=== PATIENT | female | born 1945 | race Caucasian/White ===

== ENCOUNTER 2023-03-20 08:09 | Outpatient (AMB) | payer MEDICARE, SELFPAY ==
--- NOTE | 2023-03-20 08:17 | MHC.OFFWIV ---
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 Patient states she has been having a sore/itchy throat x6 days. She denies any associated fever/chills. She denies any dysphagia but reports odynophagia. She reports associated fatigue. She denies associated cough or congestion/rhinorrhea. [facility] Social History Patient Tobacco Use Status: Former Tobacco user Review of Systems Const All systems reviewed & are unremarkable except as noted in HPI and below Reports no additional complaints Eyes Reports no additional complaints ENT Reports no additional complaints Card Reports no additional complaints Resp Reports no additional complaints GI Reports no additional complaints Reports no additional complaints Musc Reports no additional complaints Skin/Breast Reports system reviewed and no additional complaints, except as documented Neuro Reports no additional complaints Psych Reports no additional complaints Endo Reports no additional complaints Faustino/Lymph Reports no additional complaints Aller/Immun Reports no additional complaints Physical Exam Const Other: Vital signs reviewed. Constitutional: Non-toxic appearing. No acute distress. Well-developed and well-nourished. HEENT: Normocephalic and atraumatic. There is mild posterior oropharyngeal erythema but no exudates. There is no unilateral tonsillar swelling/hypertrophy. Her uvula is midline. Skin: Warm and dry. No rashes or lesions noted. Neck: Full and painless range of motion. No cervical lymphadenopathy. Cardio: Regular rate. No lower extremity edema. No JVD. Pulmonary: No respiratory distress. No accessory muscle usage. Musculoskeletal: Normal range of motion in joints throughout the body. No deformity or other signs of injury. Neuro: Alert and oriented x4. Cranial nerves 2-12 grossly intact. No focal deficits appreciated. Psych: Normal mood and affect. Assessment & Plan Assessment & Plan (1) Acute viral pharyngitis: Code(s): J02.9 - Acute pharyngitis, unspecified Plan This is a 77-year-old female presenting to the office complaining of a sore throat. Her rapid strep test is negative. History and physical most consistent with acute pharyngitis, likely viral; there is no evidence of peritonsillar mass/abscess, peritonsillar cellulitis, or unilateral neck swelling. The patient has a centor score of 0 points conferring a 1% to 2.5% likelihood of strep so antibiotics are not required at this time. Patient's vital signs are stable, physical exam is otherwise benign, and patient is overall nontoxic appearing. Recommended symptomatic management including rest, increased fluids, advil/tylenol for pain/fever, salt water gargles, and over the counter throat lozenges. Patient advised to follow up here or go to the emergency room for worsening/persistent symptoms such as dysphagia, tonsillar swelling, or difficulty breathing. Patient verbalizes understanding and is in agreement the plan. Coding Level of Care Code New Pt Level 3 (95486) Diagnoses Acute viral pharyngitis J02.9
[2023-03-20 08:28] VITALS: BP 126/64; PULSE 62; TEMP 36.6; O2SAT 97; BMI 24.2
== END 2023-03-20 09:09 | disposition home or self-care (01) ==
PROVIDERS: PCP Internal Medicine; Visit Provider Physician Assistant Medical
DX: J02.9 Acute pharyngitis, unspecified (principal)
CPT/HCPCS: 87880; 99203

== ENCOUNTER 2023-05-27 16:35 | Inpatient (IN) | payer MEDICARE, SELFPAY ==
--- NOTE | ~2023-05-27 | XR_ITS ---
EXAMINATION: XR CHEST CLINICAL INFORMATION: Epigastric pain COMPARISON: None available. TECHNIQUE: Frontal view of the chest was obtained. FINDINGS: The lungs are well-expanded and clear of acute consolidation. There is mild linear reticular stranding seen in the right middle lobe suspicious for atelectasis or scarring. No pleural effusion seen. The heart size is borderline enlarged. Pulmonary vascularity is normal. No gross bony abnormality seen. XR/XR chest 1V IMPRESSION: Mild atelectasis or scarring right middle lobe. Rest of the lungs are clear.
--- NOTE | ~2023-05-27 | CT_ITS ---
EXAMINATION: CT ABDOMEN AND PELVIS WITHOUT CONTRAST CLINICAL INFORMATION: Abdominal pain and diarrhea. COMPARISON: None available. TECHNIQUE: Multidetector volumetric imaging was performed from the superior aspect of the liver through the pubic symphysis. Sagittal and coronal reformatted images were obtained on the technologist's workstation. This CT examination was performed using dose optimization techniques as appropriate, variously including the following: *Automated exposure control *Adjustment of mA and/or kV according to patient size (this includes techniques or standardized protocols for targeted exams where dose is matched to indication/reason for exam; i.e. extremities or head) *Use of iterative reconstruction technique DLP: 400 mGy-cm FINDINGS: LUNG BASES: The visualized lung bases are unremarkable. LIVER, GALLBLADDER, AND BILIARY TREE: The liver is normal in size, shape, and attenuation. No focal hepatic lesion or biliary ductal dilatation is present. The gallbladder is unremarkable with no evidence of radiopaque gallstones, gallbladder wall thickening, or obvious pericholecystic inflammatory changes. PANCREAS: Unremarkable. SPLEEN: Unremarkable. ADRENAL GLANDS: Unremarkable. KIDNEYS AND URETERS: The kidneys are normal in size, shape, and attenuation. No hydronephrosis, hydroureter, or calculi seen. No perinephric stranding. There is a 1.5 cm cyst partially exophytic cyst upper midpole lateral cortex left kidney and a 1.4 cm cyst upper pole and exophytic 2.3 cm cyst mid to lower pole right kidney. There is as well additional cyst along the medial cortex lower pole right kidney. BLADDER: Unremarkable. GASTROINTESTINAL TRACT: There is distended sigmoid colon with fluid. There are annular sutures seen in the mid sigmoid colon from previous intervention/ileocolic anastomosis without stenosis. there are fluid-filled small bowel loops without any significant distention.. These findings could be secondary to inflammatory process but no mural thickening seen. Anal narrowing or stricture is not excluded. Rest of the small bowel loops are normal caliber. Appendix is not visualized. The stomach is nondistended. ABDOMINAL WALL: No significant hernia is appreciated. LYMPH NODES: Normal. VASCULAR: Unremarkable. PELVIC VISCERA: No free air or free fluid seen. No abnormal pelvic lymphadenopathy. OSSEOUS STRUCTURES: Grade 1 retrolisthesis L1 over L2 with degenerative disc changes with vacuum disc phenomena lower dorsal spine, L1-L2 and L2 L5-S1 disc level. There is right presacral placement of electrode. The hardware overlies over the right buttock. CT/CT abdomen pelvis wo IV con IMPRESSION: Annular sutures along the sigmoid colon likely from ileocolic anastomosis. There is distended entire sigmoid colon and some of distal small bowel loops are fluid-filled likely related to patient's history of diarrhea or inflammatory process. Anal narrowing is not excluded. No free air or free fluid seen. Bilateral renal cysts. No radiopaque renal calculi or hydronephrosis. Fleischner guidelines were followed.
[2023-05-27 16:41] VITALS: BP 110/62; PULSE 67; O2SAT 95
[2023-05-27 16:45] VITALS: BP 110/51; PULSE 84; RESP 20; TEMP 36.9; O2SAT 97
[2023-05-27 16:47] VITALS: BP 104/55; PULSE 87; RESP 16; O2SAT 95; BMI 25.0
[2023-05-27 17:11] LABS: MANUAL DIFF FLAG NO
[2023-05-27 17:14] LABS: Basophils Absolute Auto 0.1 X10*3/uL (0.0-0.2); Basophils Percent Auto 0.3 % (0-2); Eosinophils Absolute Auto 0.2 X10*3/uL (0.0-0.4); Eosinophils Percent Auto 1.3 % (0-4); Hematocrit 41.2 % (37.0-47.0); Hemoglobin 14.3 g/dl (12.0-16.0); Imm Gran Abs Auto 0.08 X10*3/uL (0.00-0.03); Imm Gran Pct Auto 0.4 % (0.0-0.4); Lymphocytes Percent Auto 22.3 % (20-40); Mean Corpuscular HGB Conc 34.7 g/dl (31.0-35.0); Mean Corpuscular Hemoglobin 31.6 pg (27.0-33.0); Mean Corpuscular Volume 91.2 fL (80.0-98.0); Mean Platelet Volume 11.6 fL (9.4-12.3); Monocytes Percent Auto 5.8 % (2-11); Neutrophils Absolute Auto 12.5 x10*3/uL (2.0-8.3); Neutrophils Percent Auto 69.9 % (45-73); Platelet Count 332 X10*3/uL (160-400); Red Blood Count 4.52 X10*6/uL (4.20-5.50); Red Cell Distribution Width 13.2 % (11.0-16.0); White Blood Count 17.9 X10*3/uL (4.8-10.8)
--- NOTE | 2023-05-27 17:35 | ED_ITS ---
HPI - Nausea/Vomiting/Diarrhea General Chief complaint: Nausea/Vomiting/Diarrhea Stated complaint: flu-like symptoms Time Seen by Provider: 05/27/23 16:46 Source: patient Mode of arrival: ambulatory Limitations: no limitations History of Present Illness HPI Narrative: 77 year old female with past medical history of HTN, chronic diarrhea with complicated bowel issues after have her hysterectomy where she had to undergo multiple bowel resections had colostomy and reversal she states she only has a few inches of bowel. She is here today after having vomiting and diarrhea for the past day. She states she feels it is a viral thing. She has had no falls injuries cough or fever. 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 Related Data Home Medications Medication Instructions Recorded Confirmed ibuprofen 800 mg tablet 800 mg PO TID 03/20/23 levothyroxine 150 mcg tablet 150 mcg PO DAILY 03/20/23 lisinopril 20 mg tablet 20 mg PO DAILY 03/20/23 loperamide 2 mg capsule 4 mg PO Q6H 03/20/23 Allergies Allergy/AdvReac Type Severity Reaction Status Date / Time No Known Allergies Allergy Verified 03/20/23 08:28 [No Known Allergies*] Review of Systems 2 Review of Systems: Review of systems: General: Patient denies any fever chills recent illness or falls Musculoskeletal: Denies back pain or body aches or other injuries HEENT: denies headache, runny nose, ear pain Respiratory: denies shortness of breath, cough Cardiovascular: no chest pain or palpitations : denies dysuria, frequency Abdomen: diarreha nausea vomiting generalized abdominal pain Extremities: no swelling, no pain Skin: no diaphoresis Yes all other systems are reviewed and are negative [facility] Social History Social History Patient Tobacco Use Status: Former Tobacco user Smoked in Last 30 Days: No Use of substances other than those prescribed or required for medical reasons: No Advance Directives: No Advance Directives Information Provided: No Physical Exam 2 Vital Signs: Vital Signs: Last Vital Signs Temp 98.4 F 05/27/23 16:45 Pulse 87 05/27/23 16:47 Resp 16 05/27/23 16:47 BP 104/55 L 05/27/23 16:47 Pulse Ox 95 05/27/23 16:47 O2 Del Method Room Air 05/27/23 16:47 BMI result Body Mass Index 25.0 General: Well-appearing well-nourished in no signs of distress HEENT: Normocephalic atraumatic Neck: No signs of JVD, no masses no tenderness or lymphadenopathy Cardiovascular: Regular rate and rhythm Respiratory: Clear to auscultation bilaterally Abdomen: Soft nontender no masses rectal exam performed guiac negative air quality specialist confirmed. Extremities: Normal pedal pulses no signs of edema Skin: Dry warm no rashes Back: No tenderness full ROM Course Course Course Narrative: 1956 patient still with lots of cramps she has had for copious bowel movements while here in the emergency department CT shows dilated loops of bowel but nothing that appears surgical. The room does smell typical a C diff infection I will start the patient on Flagyl vancomycin orally I will give patient dose of morphine another L of fluid she does have slight LIZ. I will also give the patient some dicyclomine she is having terrible cramps. Medications Administered Discontinued Medications Generic Name Dose Route Start Last Admin Trade Name Datq PRN Reason Stop Dose Admin Sodium Chloride 1,000 mls @ 999 mls/hr 05/27/23 17:45 05/27/23 18:02 Ns IV 05/27/23 18:45 999 mls/hr .Q1H1M JOSE Administration Morphine Sulfate 4 mg 05/27/23 17:34 05/27/23 18:00 Morphine Sulfate 4 Mg/Ml Cartridge IVPUSH 05/27/23 17:35 4 mg ONCE ONE Administration Protocol Ondansetron HCl 4 mg 05/27/23 17:34 05/27/23 18:01 Ondansetron Hcl 4 Mg/2 Ml Vial IVPUSH 05/27/23 17:35 4 mg ONCE ONE Administration Medical Decision Making Medical Decision Making [facility] Narrative: I will give the patient for CT scan the patient fluids morphine Zofran and reassess Differential Diagnosis Differential Diagnoses: The differential diagnosis associated with the presentation includes Acute surgical abdomen complication from previous surgeries diarrhea dehydration electrolyte ischemia bowel Admission/Observation Consideration of admission/observation: Escalation of care including admission/observation considered Consult Healthcare Provider Management of the patient was discussed with: Hospitalist Brittni velasquez with Dr. Urrutia who agreed with oral vancomycin and flagyl. Patient has LIZ and still had 4 BM's here. We agreed to treat with vanco orally and flagyl we do have fidaxomicin but patient have not been able take after they go home Lab Data MDM Lab Attestation statement: I reviewed the patient's lab results. 05/27/23 17:05 05/27/23 17:05 Labs: Lab Results 05/27/23 05/27/23 Range/Units 17:05 18:01 WBC 17.9 H (4.8-10.8) X10*3/uL RBC 4.52 (4.20-5.50) X10*6/uL Hgb 14.3 (12.0-16.0) g/dl Hct 41.2 (37.0-47.0) % MCV 91.2 (80.0-98.0) fL MCH 31.6 (27.0-33.0) pg MCHC 34.7 (31.0-35.0) g/dl RDW 13.2 (11.0-16.0) % Plt Count 332 (160-400) X10*3/uL MPV 11.6 (9.4-12.3) fL Immature Gran % (Auto) 0.4 (0.0-0.4) % Neut % (Auto) 69.9 (45-73) % Lymph % (Auto) 22.3 (20-40) % [place] % (Auto) 5.8 (2-11) % Eos % (Auto) 1.3 (0-4) % Baso % (Auto) 0.3 (0-2) % Lymph # (Auto) 4.0 (1.2-4.9) X10*3/uL [place] # (Auto) 1.0 (0.1-1.2) X10*3/uL Eos # (Auto) 0.2 (0.0-0.4) X10*3/uL Baso # (Auto) 0.1 (0.0-0.2) X10*3/uL Abs Immat Gran (auto) 0.08 H (0.00-0.03) X10*3/uL Absolute Neuts (auto) 12.5 H (2.0-8.3) x10*3/uL Absolute Nucleated RBC 0.000 (0.0-0.012) X10*3/uL Nucleated RBC % (auto) 0.0 (0.0-0.2) /100WBC Sodium 138 (135-145) mmol/L Potassium 4.2 (3.3-5.1) mmol/L Chloride 104 (96-108) mmol/L Carbon Dioxide 20 L (22-29) mmol/L Anion Gap 18 (12-20) BUN 34 H (9-16) mg/dL Creatinine 2.10 H (0.5-1.4) mg/dL Estim Creat Clear Calc 21.3 Estimated GFR 23 Random Glucose 151 H (60-115) mg/dL Lactic Acid 1.9 (0.5-2.0) mmol/L Calcium 11.2 H (8.4-10.2) mg/dL Magnesium 1.8 (1.6-2.6) mg/dL Total Bilirubin 1.1 H (0.0-1.0) mg/dL AST 22 (5-31) U/L ALT 18 (0-31) U/L Alkaline Phosphatase 77 (39-117) U/L Total Protein 8.4 H (6.5-8.0) g/dL Albumin 5.0 (3.5-5.0) g/dL Influenza Type A (PCR) NEGATIVE (Negative) Influenza Type B (PCR) NEGATIVE (Negative) RSV RNA Qual (PCR) NEGATIVE (Negative) SARS-CoV-2 RNA (RT-PCR) NEGATIVE (Negative) Independent Interpretation I performed an independent interpretation of an: EKG and CT Scan Interpretation: Rate 72 normal sinus rhythm normal intervals no signs of ischemia no previous for comparison interpreted by me Critical Care Time Critical Care Time Total Critical Care Time: 35 Attestation: Concern for C diff infection has LIZ diffuse cramps given morphine and fluids then treated with vancomycin orally and flagyl IV and dicyclomine Discharge Plan Discharge Clinical Impression: Dehydration, Acute kidney injury, Colitis, Diarrhea Patient Disposition: Admitted As Inpatient Prescriptions: No Action loperamide 2 mg capsule 4 mg PO Q6H levothyroxine 150 mcg tablet 150 mcg PO DAILY lisinopril 20 mg tablet 20 mg PO DAILY ibuprofen 800 mg tablet 800 mg PO TID
[2023-05-27 17:38] LABS: Alanine Aminotransferase 18 U/L (0-31); Alkaline Phosphatase 77 U/L (39-117); Anion Gap 18 (12-20); Aspartate Amino Transferase 22 U/L (5-31); Bilirubin Total 1.1 mg/dL (0.0-1.0); Blood Urea Nitrogen 34 mg/dL (9-16); Calcium 11.2 mg/dL (8.4-10.2); Carbon Dioxide 20 mmol/L (22-29); Chloride 104 mmol/L (96-108); Creatinine Clr Calc Pharmacy 21.3; Estimated Glomerular Filt Rate 23; Glucose Random 151 mg/dL (60-115); Magnesium 1.8 mg/dL (1.6-2.6); Potassium 4.2 mmol/L (3.3-5.1); Sodium 138 mmol/L (135-145); Total Protein 8.4 g/dL (6.5-8.0)
--- NOTE | 2023-05-27 17:39 | ECG_ITS ---
Test Reason : epigastric pain Blood Pressure : / mmHG Vent. Rate : 072 BPM Atrial Rate : 072 BPM P-R Int : 164 ms QRS Dur : 078 ms QT Int : 366 ms P-R-T Axes : 048 001 067 degrees QTc Int : 400 ms Normal sinus rhythm Minimal voltage criteria for LVH, may be normal variant ( R in aVL ) Septal infarct , age undetermined Abnormal ECG When compared with ECG of 05-SEP-2005 12:30, Septal infarct is now Present Nonspecific T wave abnormality now evident in Lateral leads Referred By: Emmett Gandhi Electronically Signed By:Esvin Ambrose
[2023-05-27 17:59] LABS: Influenza A PCR NEGATIVE (Negative); Influenza B PCR NEGATIVE (Negative); Resp Syncy Virus RNA Qual PCR NEGATIVE (Negative); SARS COV2 PCR INHOUSE NEGATIVE (Negative)
[2023-05-27] MEDS: Morphine Sulfate 4 MG/ML CARTRIDGE IVPUSH ×2 (18:00→20:27)
[2023-05-27] MEDS: ondansetron HCL 4 MG/2 ML VIAL IVPUSH (18:01)
[2023-05-27] MEDS: 0.9 % Sodium Chloride 1,000 ML 999 ML IV ×4 (18:02→23:20)
--- NOTE | 2023-05-27 18:20 | PC.NURSE ---
Patient c/o N/V/D / leg cramping, resting on stretcher at this time waiting for CT scan.
[2023-05-27 18:27] LABS: Lactic Acid 1.9 mmol/L (0.5-2.0)
--- NOTE | 2023-05-27 20:16 | PHA.MEDREC ---
Pharmacy Consult ? Medication Reconciliation Pharmacy has completed the medication reconciliation. Patient reproted medicaitons. Anayeli Jolley, HoseaD
[2023-05-27] MEDS: Dicyclomine HCl 10 MG CAPSULE PO (20:27)
[2023-05-27] MEDS: vancomycin HCL 125 MG CAPSULE PO (20:27)
[2023-05-27] MEDS: metroNIDAZOLE/NS 500 MG/100 ML PIGGYBACK 100 MG IV (20:28)
[2023-05-27 21:23] VITALS: BP 114/45; PULSE 72; RESP 18; O2SAT 94
--- NOTE | 2023-05-27 21:33 | PM.IMHP ---
History of Present Illness Date of Service: 05/27/23 Attending physician on admission: Robert Harrison Chief Complaint: diarrhea 77-year-old female with history of hypertension, hypothyroidism, prediabetes, history of colostomy with reversal presented to the ED earlier today for evaluation of copious diarrhea ongoing for 1 day. She states she had some fecal urgency but no diarrhea on Thursday and then yesterday afternoon has been experiencing multiple episodes of watery diarrhea every hour. There is associated diffuse abdominal pain, lightheadedness. She is also felt nauseated and vomited x1 today. She has been trying to drink liquids and following a brat diet but really has not much of an appetite. Denies any fevers, chills, melena, hematochezia, urinary symptoms, shortness of breath, chest pain. She denies any recent travel or antibiotic use. She denies eating any bad foods recently and no no one at home has similar symptoms. On arrival, vital signs normal. She has a leukocytosis of 17.9. Creatinine 2.10 (baseline around 1.1 from [facility] 03/30/2023), BUN 34. Electrolyte levels levels normal except for CO2 20. Glucose 151. Lactic acid 1.9. Hepatic function largely within normal limits. GI panel and C diff PCR pending. Negative for COVID-19, flu, influenza. CXR shows mild atelectasis versus scarring of the right middle lobe lungs otherwise clear. CT abdomen/pelvis shows annular sutures along the sigmoid colon likely from ileocolic anastomosis as well as distended entire sigmoid colon some of distal small bowel loops are fluid-filled likely related to patient's history of diarrhea or inflammatory process. Anal narrowing is not excluded. In the ED, has received 2 L IV NS, 10 mg dicyclomine, IV Flagyl, IV morphine, and p.o. vanco. Review of Systems Review of Systems: General: No fevers, malaise, unintentional weight loss HEENT: No blurred vision, diplopia. No sore throat, nasal congestion, rhinorrhea, sinus pain, ear pain Cardiovascular: No chest pain, palpitations, or leg edema Respiratory: No shortness of breath, wheezing, cough GI: +abd pain, +nausea, +vomiting, +diarrhea. No constipation, melena, hematochezia : No dysuria, hematuria, increased urinary frequency, decreased urinary output MSK: No myalgia, back pain Neuro: No headaches, weakness, paresthesias Skin: No rashes or lesions [facility] Medical History Hypertension Hypothyroidism Surgical History History of colostomy reversal Social History Patient Tobacco Use Status: Former Tobacco user Smoked in Last 30 Days: No Use of substances other than those prescribed or required for medical reasons: No Advance Directives: No Advance Directives Information Provided: No Meds Allergies Allergy/AdvReac Type Severity Reaction Status Date / Time No Known Allergies Allergy Verified 03/20/23 08:28 [No Known Allergies*] Active Medications: Current Medications Acetaminophen (Acetaminophen 325 Mg Tablet) 650 mg PO Q6H PRN PRN Reason: Pain, Mild (Pain Scale 1-3) Ascorbic Acid (Ascorbic Acid 500 Mg Tablet) 500 mg PO DAILY JOSE Cyanocobalamin (Cyanocobalamin (Vitamin B-12) 1,000 Mcg Tablet) 1,000 mcg PO DAILY JOSE Enoxaparin Sodium (Enoxaparin Sodium 40 Mg/0.4 Ml Syringe) 40 mg SUBCUT Q24H JOSE Metronidazole (Flagyl) 500 mg in 100 mls @ 100 mls/hr IV Q8H JOSE Ceftriaxone Sodium 1 gm/ (Sodium Chloride) 50 mls @ 100 mls/hr IV Q24H JOSE Lactated Ringer's (Lr) 1,000 mls @ 125 mls/hr IVCONT .Q8H JOSE Levothyroxine Sodium (Levothyroxine Sodium 150 Mcg Tablet) 150 mcg PO DAILY JOSE Multivitamins/Vitamin C (Multivitamin Tablet) 1 tab PO DAILY JOSE Non-Formulary Medication ([place] 7-Iid-Rgp-Fish Oil [Fish Oil]) 1 cap PO DAILY JOSE Non-Formulary Medication (Vitamin E) 268 mg PO DAILY JOSE Ondansetron HCl (Ondansetron Hcl 4 Mg/2 Ml Vial) 4 mg IVPUSH Q8H PRN PRN Reason: Nausea and Vomiting Senna (Sennosides 8.6 Mg Tablet) 17.2 mg PO BEDTIME PRN PRN Reason: Constipation Sodium Chloride (0.9 % Sodium Chloride Flush 3 Ml Syringe) 3 ml IVFLUSH QSHIFT [facility] Vitamin D (Cholecalciferol (Vitamin D3) 25 Mcg Tablet) 25 mcg PO DAILY [facility] Home Medications Medication Instructions Recorded Confirmed Last Taken Type ibuprofen 800 mg tablet 800 mg PO TID PRN Pain 03/20/23 05/27/23 05/26/23 History levothyroxine 150 mcg tablet 150 mcg PO DAILY 03/20/23 05/27/23 05/26/23 History lisinopril 20 mg tablet 20 mg PO DAILY 03/20/23 05/27/23 05/26/23 History loperamide 2 mg capsule 4 mg PO Q6H 03/20/23 05/27/23 05/26/23 History ascorbic acid (vitamin C) 500 mg 500 mg PO DAILY 05/27/23 05/27/23 05/26/23 History tablet cholecalciferol (vitamin D3) 25 25 mcg PO DAILY 05/27/23 05/27/23 05/26/23 History mcg (1,000 unit) tablet cyanocobalamin (vitamin B-12) 1,000 mcg PO DAILY 05/27/23 05/27/23 05/26/23 History 1,000 mcg tablet multivitamin 1 tab PO DAILY 05/27/23 05/27/23 05/26/23 History omega 8-lnd-oae-fish oil 1,000 mg 1 cap PO DAILY 05/27/23 05/27/23 05/26/23 History (120 mg-180 mg) capsule (Fish Oil) vitamin E 268 mg (400 unit) capsule 268 mg PO DAILY 05/27/23 05/27/23 05/26/23 History Physical Exam Vital Signs and Narrative: Vital Signs: Last Vital Signs Temp 98.4 F 05/27/23 16:45 Pulse 72 05/27/23 21:23 Resp 18 05/27/23 21:23 BP 114/45 L 05/27/23 21:23 Pulse Ox 94 05/27/23 21:23 O2 Del Method Room Air 05/27/23 21:23 BMI result Body Mass Index 25.0 Constitutional - Awake and Alert, No apparent distress Eyes - PERRLA, EOMI Cardiovascular - S1S2, RRR, No edema Respiratory - Normal lung expansion, Normal respiratory effort, No respiratory distress, CTA bilaterally Gastrointestinal - NT / ND; +BS; No rebound or guarding Extremities - no calf tenderness bilaterally, no swelling Skin - Warm/Dry Neurological - Alert & oriented x3 Psychological - Appropriate affect Results Labs 05/27/23 17:05 05/27/23 17:05 Labs: Laboratory Results - last 24 hr 05/27/23 05/27/23 17:05 18:01 MCV 91.2 MCH 31.6 MCHC 34.7 RDW 13.2 Plt Count 332 MPV 11.6 Immature Gran % (Auto) 0.4 Neut % (Auto) 69.9 Lymph % (Auto) 22.3 [place] % (Auto) 5.8 Eos % (Auto) 1.3 Baso % (Auto) 0.3 Lymph # (Auto) 4.0 [place] # (Auto) 1.0 Eos # (Auto) 0.2 Baso # (Auto) 0.1 Abs Immat Gran (auto) 0.08 H Absolute Neuts (auto) 12.5 H Absolute Nucleated RBC 0.000 Nucleated RBC % (auto) 0.0 Anion Gap 18 Estim Creat Clear Calc 21.3 Estimated GFR 23 Random Glucose 151 H Lactic Acid 1.9 Calcium 11.2 H Magnesium 1.8 Total Bilirubin 1.1 H AST 22 ALT 18 Alkaline Phosphatase 77 Total Protein 8.4 H Albumin 5.0 Influenza Type A (PCR) NEGATIVE Influenza Type B (PCR) NEGATIVE RSV RNA Qual (PCR) NEGATIVE SARS-CoV-2 RNA (RT-PCR) NEGATIVE Imaging Radiologist's Impressions: Impressions Abdomen/Pelvis CT 05/27/23 18:52 IMPRESSION: Annular sutures along the sigmoid colon likely from ileocolic anastomosis. There is distended entire sigmoid colon and some of distal small bowel loops are fluid-filled likely related to patient's history of diarrhea or inflammatory process. Anal narrowing is not excluded. No free air or free fluid seen. Bilateral renal cysts. No radiopaque renal calculi or hydronephrosis. Fleischner guidelines were followed. Chest X-Ray 05/27/23 19:35 IMPRESSION: Mild atelectasis or scarring right middle lobe. Rest of the lungs are clear. Assessment and Plan (1) Diarrhea: Status: Acute (2) Colitis: Status: Acute (3) Acute kidney injury: Status: Acute (4) Dehydration: Status: Acute Plan 77-year-old female with history of hypertension, hypothyroidism, prediabetes, history of colostomy with reversal admitted for further management of acute kidney injury due to GI losses with colitis #Acute kidney injury- likely prerenal due to hypovolemia from GI losses -Creat 2.1, baseline 1.1. BUN 34 -Continue IV LR -avoid nephrotoxins -monitor i&O -follow renal function/lytes #Acute diarrhea with acute colitis, likely infectious -leukocytosis 17.9, no other SIRS criteria -CT abdomen/pelvis shows diffuse sigmoid colon distention as well as distal small bowel loops that are fluid-filled, anal narrowing not excluded -C diff PCR and GI panel pending -continue IV LR -IV Flagyl and ceftriaxone (initiated 05/26) -clear liquid diet, advance as tolerated -follow renal function/lytes # hypertension -hold lisinopril in setting of LIZ -monitor blood pressures # hypothyroidism -continue levothyroxine # prediabetes -last hemoglobin A1c 5.8 at [facility] 11/22 -outpatient follow-up DVT prophylaxis-Lovenox renally adjusted Full code Patient requires inpatient stay for at least 2 midnights due to significant GI losses with infectious colitis resulting in acute kidney injury requiring IV fluid resuscitation, IV antibiotics, and close monitoring of renal function electrolyte levels. Quality Stroke Does the patient have a stroke diagnosis?: No VTE Prior VTE?: No VTE Risk Level:: Medical - moderate - high VTE Device Contraindication: Treatment Not Indicated VTE Drug Contraindication: N/A - Med Ordered
--- NOTE | 2023-05-27 22:14 | PC.NURSE ---
patient resting quietly on stretcher at this time, continues to be incontinent of stool intermittently, medicated for pain per mar, fluids running, waiting bed assignment
[2023-05-27 22:30] LABS: CDiff Gene PCR NEGATIVE (Negative)
[2023-05-27] MEDS: Enoxaparin Sodium 30 MG/0.3 ML SYRINGE SUBCUT (22:31)
[2023-05-27] MEDS: cefTRIAXone sodium 1 GM in 0.9 % Sodium Chloride 50 ML IV (22:31)
[2023-05-27 22:33] VITALS: BP 96/48; PULSE 70; RESP 16; O2SAT 96
[2023-05-27 23:58] VITALS: BP 119/55; PULSE 94; RESP 15; TEMP 36.7; O2SAT 96
[2023-05-28] MEDS: Lactated Ringers 1,000 ML 100 ML IVCONT ×3 (00:53→21:31)
[2023-05-28 06:00] VITALS: BP 142/64; PULSE 69; RESP 18; TEMP 36.6; O2SAT 94
[2023-05-28] MEDS: Levothyroxine Sodium 150 MCG TABLET PO (06:15)
[2023-05-28] MEDS: metroNIDAZOLE/NS 500 MG/100 ML PIGGYBACK 100 MG IV ×3 (06:15→20:16)
--- NOTE | 2023-05-28 07:14 | PC.NURSE ---
Assumed care of PT at 2315. Downtime from 0100 to 0600. PT medicated as per mar
[2023-05-28 08:08] LABS: MANUAL DIFF FLAG NO
[2023-05-28 08:27] LABS: Basophils Percent Auto 0.3 % (0-2); Blood Urea Nitrogen 33 mg/dL (9-16); Creatinine Clr Calc Pharmacy 24.1; Eosinophils Absolute Auto 0.3 X10*3/uL (0.0-0.4); Eosinophils Percent Auto 2.6 % (0-4); Estimated Glomerular Filt Rate 27; Glucose Random 81 mg/dL (60-115); Hematocrit 32.7 % (37.0-47.0); Hemoglobin 10.8 g/dl (12.0-16.0); Imm Gran Abs Auto 0.04 X10*3/uL (0.00-0.03); Imm Gran Pct Auto 0.4 % (0.0-0.4); Lymphocytes Absolute Auto 3.7 X10*3/uL (1.2-4.9); Lymphocytes Percent Auto 32.9 % (20-40); Mean Corpuscular Hemoglobin 31.8 pg (27.0-33.0); Mean Corpuscular Volume 96.2 fL (80.0-98.0); Monocytes Absolute Auto 0.7 X10*3/uL (0.1-1.2); Monocytes Percent Auto 6.1 % (2-11); Neutrophils Absolute Auto 6.5 x10*3/uL (2.0-8.3); Neutrophils Percent Auto 57.7 % (45-73); Platelet Count 211 X10*3/uL (160-400); Red Cell Distribution Width 13.2 % (11.0-16.0); White Blood Count 11.3 X10*3/uL (4.8-10.8)
[2023-05-28 08:41] LABS: Anion Gap 11 (12-20); Calcium 7.9 mg/dL (8.4-10.2); Carbon Dioxide 20 mmol/L (22-29); Chloride 114 mmol/L (96-108); Potassium 3.9 mmol/L (3.3-5.1); Sodium 141 mmol/L (135-145)
[2023-05-28 08:42] VITALS: BMI 25.0
[2023-05-28 09:05] VITALS: BP 179/77; PULSE 62; RESP 18; TEMP 36.2; O2SAT 100
[2023-05-28 09:37] LABS: Adenovirus F 40/41 Not Detected (Not Detect.); Astrovirus Not Detected (Not Detect.); Campylobacter Not Detected (Not Detect.); Cryptosporidium Not Detected (Not Detect.); Cyclospora cayetanensis Not Detected (Not Detect.); E. coli EAEC Not Detected (Not Detect.); E. coli EPEC Not Detected (Not Detect.); E. coli ETEC Not Detected (Not Detect.); E. coli STEC Not Detected (Not Detect.); Entamoeba histolytica Not Detected (Not Detect.); Giardia lamblia Not Detected (Not Detect.); Norovirus GI/GII Not Detected (Not Detect.); Plesiomonas shigelloides Not Detected (Not Detect.); Rotavirus A Not Detected (Not Detect.); Salmonella Not Detected (Not Detect.); Sapovirus Not Detected (Not Detect.); Shigella sp./EIEC Not Detected (Not Detect.); Vibrio Not Detected (Not Detect.); Vibrio Cholerae Not Detected (Not Detect.); Yersinia enterocolitica Not Detected (Not Detect.)
[2023-05-28] MEDS: 0.9 % Sodium Chloride Flush 3 ML SYRINGE IVFLUSH ×3 (10:30→23:44)
[2023-05-28 10:40] VITALS: BP 159/81; PULSE 60; RESP 16; O2SAT 99
--- NOTE | 2023-05-28 10:52 | MHC.CM.PN ---
IMM DELIVERED. PATIENT IS FROM HOME W/ . FUNCTIONALLY INDEPENDENT. DENIES USE OF DME OR SERVICES. PCP ERIK DALE NO HCP. CM PROVIDED EDUCATION AND OFFERED ASSISTANCE. 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 DP: GOAL IS HOME SELF CARE. TO TRANSPORT. DO NOT ANTICIPATE THE NEED FOR SERVICES. CM WILL CONTINUE TO FOLLOW.
[2023-05-28] MEDS: Acetaminophen 325 MG TABLET 650 MG PO (10:53)
--- NOTE | 2023-05-28 13:28 | P.PNIM_ITS ---
Subjective Subjective Date of Service: 05/28/23 Interval History: seen and examined this morning follow up for colitis starting to feel a little better, still having non-bloody diarrhea Review of Systems Review of Systems: Yes all other systems are reviewed and are negative Constitutional Constitutional: Denies chills and Denies fever(s) Cardiovascular Cardiovascular: Denies chest pain, Denies palpitations and Denies dyspnea Respiratory Respiratory: Denies cough and Denies dyspnea Gastrointestinal Gastrointestinal: Denies abdominal pain and Reports diarrhea Endocrine Endocrine: Denies palpitations Physical Exam 2 Vital Signs: Vital Signs: Last Vital Signs Temp 97.2 F 05/28/23 09:05 Pulse 60 05/28/23 10:40 Resp 16 05/28/23 10:40 BP 159/81 H 05/28/23 10:40 Pulse Ox 99 05/28/23 10:40 O2 Del Method Room Air 05/28/23 10:40 BMI result Body Mass Index 25.0 Const: General: cooperative, comfortable, no acute distress, alert and awake Nutritional Appearance: average body habitus Orientation/consciousness: p atient oriented x3 Resp: Effort & Inspection: normal respiratory effort, able to speak in complete sentences, no respiratory distress and no use of accessory muscles Cardio: Rate: regular rate Neuro: General: patient oriented x3, moves all extremities and CN's II-XI intact bilaterally Extrem: General: Yes no pedal edema Objective Data Active Medications Acetaminophen (Acetaminophen 325 Mg Tablet) 650 mg PO Q6H PRN PRN Reason: Pain, Mild (Pain Scale 1-3) Last Admin: 05/28/23 10:53 Dose: 650 mg Documented By: CHAYA Ascorbic Acid (Ascorbic Acid 500 Mg Tablet) 500 mg PO DAILY [facility] Last Admin: 05/28/23 10:59 Dose: Not Given Documented By: CHAYA Non-Admin Reason: Patient Refused Cyanocobalamin (Cyanocobalamin (Vitamin B-12) 1,000 Mcg Tablet) 1,000 mcg PO DAILY [facility] Last Admin: 05/28/23 11:00 Dose: Not Given Documented By: CHAYA Non-Admin Reason: Patient Refused Enoxaparin Sodium (Enoxaparin Sodium 30 Mg/0.3 Ml Syringe) 30 mg SUBCUT Q24H [facility] Last Admin: 05/27/23 22:31 Dose: 30 mg Documented By: GE Metronidazole (Flagyl) 500 mg in 100 mls @ 100 mls/hr IV Q8H [facility] Last Admin: 05/28/23 13:06 Dose: 100 mls/hr Documented By: CHAYA Ceftriaxone Sodium 1 gm/ (Sodium Chloride) 50 mls @ 100 mls/hr IV Q24H [facility] Last Infusion: 05/27/23 23:20 Dose: Infused Documented By: GE Lactated Ringer's (Lr) 1,000 mls @ 100 mls/hr IVCONT .Q10H [facility] Last Admin: 05/28/23 10:29 Dose: 100 mls/hr Documented By: CHAYA Levothyroxine Sodium (Levothyroxine Sodium 150 Mcg Tablet) 150 mcg PO DAILY@0600 [facility] Last Admin: 05/28/23 06:15 Dose: 150 mcg Documented By: SHAWANDA Multivitamins/Vitamin C (Multivitamin Tablet) 1 tab PO DAILY [facility] Last Admin: 05/28/23 11:00 Dose: Not Given Documented By: CHAYA Non-Admin Reason: Patient Refused Ondansetron HCl (Ondansetron Hcl 4 Mg/2 Ml Vial) 4 mg IVPUSH Q8H PRN PRN Reason: Nausea and Vomiting Senna (Sennosides 8.6 Mg Tablet) 17.2 mg PO BEDTIME PRN PRN Reason: Constipation Sodium Chloride (0.9 % Sodium Chloride Flush 3 Ml Syringe) 3 ml IVFLUSH QSHIFT [facility] Last Admin: 05/28/23 10:30 Dose: 3 ml Documented By: CHAYA Vitamin D (Cholecalciferol (Vitamin D3) 25 Mcg Tablet) 25 mcg PO DAILY [facility] Last Admin: 05/28/23 10:59 Dose: Not Given Documented By: CHAYA Non-Admin Reason: Patient Refused Vitamin E (Vitamin E (Dl,Tocopheryl Acet) 180 Mg (400 Unit) Capsule) 180 mg PO DAILY [facility] Last Admin: 05/28/23 11:00 Dose: Not Given Documented By: CHAYA Non-Admin Reason: Patient Refused Labs 05/28/23 07:26 05/28/23 07:26 Labs: Laboratory Results - last 24 hr 05/27/23 05/27/23 05/27/23 17:05 18:01 21:30 MCV 91.2 MCH 31.6 MCHC 34.7 RDW 13.2 Plt Count 332 MPV 11.6 Immature Gran % (Auto) 0.4 Neut % (Auto) 69.9 Lymph % (Auto) 22.3 [place] % (Auto) 5.8 Eos % (Auto) 1.3 Baso % (Auto) 0.3 Lymph # (Auto) 4.0 [place] # (Auto) 1.0 Eos # (Auto) 0.2 Baso # (Auto) 0.1 Abs Immat Gran (auto) 0.08 H Absolute Neuts (auto) 12.5 H Absolute Nucleated RBC 0.000 Nucleated RBC % (auto) 0.0 Anion Gap 18 Estim Creat Clear Calc 21.3 Estimated GFR 23 Random Glucose 151 H Lactic Acid 1.9 Calcium 11.2 H Magnesium 1.8 Total Bilirubin 1.1 H AST 22 ALT 18 Alkaline Phosphatase 77 Total Protein 8.4 H Albumin 5.0 Stl C. cayetanensis PCR Not Detected Stool Rotavirus A PCR Not Detected Stl Adenov F 40/41 PCR Not Detected Stool Astrovirus (PCR) Not Detected Stool Campylobacter PCR Not Detected Stool Cryptosporidium PCR Not Detected Stl Sh Tox Pr E STEC PCR Not Detected Stool E coli O157 PCR Not applicable Stl Enterotoxigenic E PCR Not Detected Stool EPEC (PCR) Not Detected Stool EAEC (PCR) Not Detected Stl E. histolytica PCR Not Detected Stool Giardia Lamblia PCR Not Detected Stl P. shigelloides PCR Not Detected Stool Salmonella PCR Not Detected Stool Sapovirus (PCR) Not Detected Stl Shigella/EIEC PCR Not Detected St Y.enterocolitica PCR Not Detected Stool Vibrio (PCR) Not Detected Stl Vibrio cholerae PCR Not Detected Stl Norovirus GI/GII PCR Not Detected C. difficile Tox B Gene NEGATIVE Influenza Type A (PCR) NEGATIVE Influenza Type B (PCR) NEGATIVE RSV RNA Qual (PCR) NEGATIVE SARS-CoV-2 RNA (RT-PCR) NEGATIVE 05/28/23 07:26 MCV 96.2 D MCH 31.8 MCHC 33.0 RDW 13.2 Plt Count 211 D MPV 12.0 Immature Gran % (Auto) 0.4 Neut % (Auto) 57.7 Lymph % (Auto) 32.9 [place] % (Auto) 6.1 Eos % (Auto) 2.6 Baso % (Auto) 0.3 Lymph # (Auto) 3.7 [place] # (Auto) 0.7 Eos # (Auto) 0.3 Baso # (Auto) 0.0 Abs Immat Gran (auto) 0.04 H Absolute Neuts (auto) 6.5 Absolute Nucleated RBC 0.000 Nucleated RBC % (auto) 0.0 Anion Gap 11 L Estim Creat Clear Calc 24.1 Estimated GFR 27 Random Glucose 81 Lactic Acid Calcium 7.9 L D Magnesium Total Bilirubin AST ALT Alkaline Phosphatase Total Protein Albumin Stl C. cayetanensis PCR Stool Rotavirus A PCR Stl Adenov F 40/41 PCR Stool Astrovirus (PCR) Stool Campylobacter PCR Stool Cryptosporidium PCR Stl Sh Tox Pr E STEC PCR Stool E coli O157 PCR Stl Enterotoxigenic E PCR Stool EPEC (PCR) Stool EAEC (PCR) Stl E. histolytica PCR Stool Giardia Lamblia PCR Stl P. shigelloides PCR Stool Salmonella PCR Stool Sapovirus (PCR) Stl Shigella/EIEC PCR St Y.enterocolitica PCR Stool Vibrio (PCR) Stl Vibrio cholerae PCR Stl Norovirus GI/GII PCR C. difficile Tox B Gene Influenza Type A (PCR) Influenza Type B (PCR) RSV RNA Qual (PCR) SARS-CoV-2 RNA (RT-PCR) Assessment and Plan (1) Colitis: Status: Acute (2) Diarrhea: Status: Acute Plan This is a 77-year-old female with history of hypertension, hypothyroidism, prediabetes, history of colostomy with reversal and Interstim device who presented with diarrhea admitted with acute kidney injury due to GI losses with colitis #Acute kidney injury- likely prerenal due to hypovolemia from GI losses Creat 2.1 on arrival down to 1.85 continue IVF hold lisinopril follow renal function #Acute diarrhea with acute colitis, likely infectious -leukocytosis 17.9 trending down to 11.3 -CT abdomen/pelvis shows diffuse sigmoid colon distention as well as distal small bowel loops that are fluid-filled, anal narrowing not excluded (pt has Interstim device due to history of perforated bowel requiring resection and chronic diarrhea and poor internal anal sphincter tone and chronic diarrhea) -C diff PCR and GI panel negative -continue IV Flagyl and ceftriaxone (initiated 05/26) -clear liquid diet, advance as tolerated normocytic anemia drop across all cell lines, likely due to hemodilution no evidence of acute blood loss follow CBC # hypertension -hold lisinopril in setting of LIZ -monitor blood pressures # hypothyroidism -continue levothyroxine # prediabetes -last hemoglobin A1c 5.8 at [facility] 11/22 -outpatient follow-up DVT prophylaxis-Lovenox renally adjusted Full code Patient requires ongoing inpatient stay for infectious colitis resulting in acute kidney injury requiring IV fluid resuscitation, IV antibiotics, and close monitoring of renal function electrolyte levels. Quality Stroke Does the patient have a stroke diagnosis?: No VTE Prior VTE?: No VTE Risk Level:: Medical - moderate - high VTE Device Contraindication: Treatment Not Indicated VTE Drug Contraindication: N/A - Med Ordered
[2023-05-28 15:26] VITALS: BP 164/76; PULSE 57; RESP 16; TEMP 36.4; O2SAT 97
[2023-05-28 19:45] VITALS: BP 172/70; PULSE 60; RESP 16; TEMP 36.8; O2SAT 97
[2023-05-28] MEDS: Enoxaparin Sodium 30 MG/0.3 ML SYRINGE SUBCUT (20:15)
--- NOTE | 2023-05-28 20:23 | PC.NURSE ---
Addendum entered by Chiquita Seymour RN 05/28/23 20:54: dr. Harrison notified,Tramadol was ordered,patient called her daughter and find out that pt got Gabapentin ,Shiraz notified,awaiting new orders Original Note: Patient states yesterday in ED she received medication that helped her leg cramps,RN called pharmacy ,no meds was administered for leg cramps,patient did get Morphine for pain,notified patient.
[2023-05-28] MEDS: Gabapentin 100 MG CAPSULE PO (20:58)
[2023-05-28] MEDS: cefTRIAXone sodium 1 GM in 0.9 % Sodium Chloride 50 ML IV (21:32)
[2023-05-29 03:25] VITALS: BP 174/60; PULSE 59; RESP 16; TEMP 36.7; O2SAT 95
[2023-05-29] MEDS: metroNIDAZOLE/NS 500 MG/100 ML PIGGYBACK 100 MG IV ×3 (04:38→22:03)
[2023-05-29 04:43] VITALS: BP 164/75
[2023-05-29] MEDS: Levothyroxine Sodium 150 MCG TABLET PO (06:06)
[2023-05-29 07:06] LABS: Hematocrit 33.9 % (37.0-47.0); Hemoglobin 11.5 g/dl (12.0-16.0); Mean Corpuscular HGB Conc 33.9 g/dl (31.0-35.0); Mean Corpuscular Hemoglobin 31.4 pg (27.0-33.0); Mean Corpuscular Volume 92.6 fL (80.0-98.0); Mean Platelet Volume 12.1 fL (9.4-12.3); Platelet Count 223 X10*3/uL (160-400); Red Blood Count 3.66 X10*6/uL (4.20-5.50); Red Cell Distribution Width 12.9 % (11.0-16.0); White Blood Count 7.9 X10*3/uL (4.8-10.8)
[2023-05-29 07:13] LABS: Anion Gap 10 (12-20); Blood Urea Nitrogen 18 mg/dL (9-16); Carbon Dioxide 19 mmol/L (22-29); Chloride 116 mmol/L (96-108); Creatinine Clr Calc Pharmacy 37.6; Estimated Glomerular Filt Rate 44; Glucose Random 85 mg/dL (60-115); Potassium 3.9 mmol/L (3.3-5.1); Sodium 141 mmol/L (135-145)
[2023-05-29 07:26] LABS: Calcium 8.8 mg/dL (8.4-10.2)
[2023-05-29 07:31] VITALS: BP 176/72; PULSE 59; RESP 16; TEMP 36.2; O2SAT 96
[2023-05-29] MEDS: lisinopriL 20 MG TABLET PO (12:07)
--- NOTE | 2023-05-29 14:14 | HO.PM.IMPN ---
Subjective Subjective Date of Service: 05/29/23 Interval History: seen and examined this morning follow up for colitis, liz feeling better today, tolerating clears diarrhea slowing down Review of Systems Review of Systems: Yes all other systems are reviewed and are negative Constitutional Constitutional: Denies chills and Denies fever(s) Cardiovascular Cardiovascular: Denies chest pain, Denies palpitations and Denies dyspnea Respiratory Respiratory: Denies cough and Denies dyspnea Gastrointestinal Gastrointestinal: Denies abdominal pain Endocrine Endocrine: Denies palpitations Physical Exam Vital Signs: Vital Signs: Last Vital Signs Temp 97.2 F 05/29/23 07:31 Pulse 59 05/29/23 07:31 Resp 16 05/29/23 07:31 BP 176/72 H 05/29/23 07:31 Pulse Ox 96 05/29/23 07:31 O2 Del Method Room Air 05/29/23 07:31 BMI result Body Mass Index 25.0 Const: General: cooperative, comfortable, no acute distress, alert and awake Nutritional Appearance: average body habitus Orientation/consciousness: patient oriented x3 Resp: Effort & Inspection: normal respiratory effort, able to speak in complete sentences, no respiratory distress and no use of accessory muscles Cardio: Rate: regular rate GI: Inspection: No distended Palpation (GI): Soft to palpation and nontender Neuro: General: patient oriented x3, moves all extremities and CN's II-XI intact bilaterally Extrem: General: Yes no pedal edema Objective Data Active Medications Acetaminophen (Acetaminophen 325 Mg Tablet) 650 mg PO Q6H PRN PRN Reason: Pain, Mild (Pain Scale 1-3) Last Admin: 05/28/23 10:53 Dose: 650 mg Documented By: CHAYA Ascorbic Acid (Ascorbic Acid 500 Mg Tablet) 500 mg PO DAILY [facility] Last Admin: 05/29/23 07:14 Dose: Not Given Documented By: GREGORY Non-Admin Reason: Patient Refused Cyanocobalamin (Cyanocobalamin (Vitamin B-12) 1,000 Mcg Tablet) 1,000 mcg PO DAILY [facility] Last Admin: 05/29/23 07:14 Dose: Not Given Documented By: GREGORY Non-Admin Reason: Patient Refused Enoxaparin Sodium (Enoxaparin Sodium 30 Mg/0.3 Ml Syringe) 30 mg SUBCUT Q24H [facility] Last Admin: 03/28/24 20:15 Dose: 30 mg Documented By: SABRINA Gabapentin (Gabapentin 100 Mg Capsule) 100 mg PO BEDTIME [facility] Last Admin: 05/28/23 20:58 Dose: 100 mg Documented By: SABRINA Metronidazole (Flagyl) 500 mg in 100 mls @ 100 mls/hr IV Q8H [facility] Last Infusion: 05/29/23 05:40 Dose: Infused Documented By: OBED Ceftriaxone Sodium 1 gm/ (Sodium Chloride) 50 mls @ 100 mls/hr IV Q24H [facility] Last Infusion: 05/28/23 22:06 Dose: Infused Documented By: SABRINA Lactated Ringer's (Lr) 1,000 mls @ 100 mls/hr IVCONT .Q10H [facility] Last Infusion: 05/29/23 08:27 Dose: Infused Documented By: GREGORY Levothyroxine Sodium (Levothyroxine Sodium 150 Mcg Tablet) 150 mcg PO DAILY@0600 [facility] Last Admin: 05/29/23 06:06 Dose: 150 mcg Documented By: OBED Lisinopril (Lisinopril 20 Mg Tablet) 20 mg PO DAILY [facility]; Protocol Last Admin: 05/29/23 12:07 Dose: 20 mg Documented By: CHAYA Multivitamins/Vitamin C (Multivitamin Tablet) 1 tab PO DAILY [facility] Last Admin: 05/29/23 07:15 Dose: Not Given Documented By: GREGORY Non-Admin Reason: Patient Refused Ondansetron HCl (Ondansetron Hcl 4 Mg/2 Ml Vial) 4 mg IVPUSH Q8H PRN PRN Reason: Nausea and Vomiting Senna (Sennosides 8.6 Mg Tablet) 17.2 mg PO BEDTIME PRN PRN Reason: Constipation Sodium Chloride (0.9 % Sodium Chloride Flush 3 Ml Syringe) 3 ml IVFLUSH QSHIFT [facility] Last Admin: 05/29/23 07:14 Dose: Not Given Documented By: GREGORY Non-Admin Reason: IV Running Tramadol HCl (Tramadol Hcl 50 Mg Tablet) 25 mg PO Q6H PRN PRN Reason: Pain, Moderate(Pain Scale 4-6) Vitamin D (Cholecalciferol (Vitamin D3) 25 Mcg Tablet) 25 mcg PO DAILY [facility] Last Admin: 05/29/23 07:14 Dose: Not Given Documented By: GREGORY Non-Admin Reason: Patient Refused Vitamin E (Vitamin E (Dl,Tocopheryl Acet) 180 Mg (400 Unit) Capsule) 180 mg PO DAILY [facility] Last Admin: 05/29/23 07:15 Dose: Not Given Documented By: GREGORY Non-Admin Reason: Patient Refused Labs 05/29/23 05:45 05/29/23 05:45 Labs: Laboratory Results - last 24 hr 05/29/23 05:45 MCV 92.6 MCH 31.4 MCHC 33.9 RDW 12.9 Plt Count 223 MPV 12.1 Absolute Nucleated RBC 0.000 Nucleated RBC % (auto) 0.0 Anion Gap 10 L Estim Creat Clear Calc 37.6 Estimated GFR 44 Random Glucose 85 Calcium 8.8 D Assessment and Plan (1) Colitis: Status: Acute Plan This is a 77-year-old female with history of hypertension, hypothyroidism, prediabetes, history of colostomy with reversal and Interstim device who presented with diarrhea admitted with acute kidney injury due to GI losses with colitis #Acute kidney injury- likely prerenal due to hypovolemia from GI losses resolved with IVF #Acute diarrhea with acute colitis, likely infectious white count resolved CT abdomen/pelvis shows diffuse sigmoid colon distention as well as distal small bowel loops that are fluid-filled, anal narrowing not excluded (pt has Interstim device due to history of perforated bowel requiring resection with resulting chronic diarrhea and poor internal anal sphincter tone) C diff PCR and GI panel negative continue IV Flagyl and ceftriaxone (initiated 05/26) tolerating full liquids normocytic anemia drop across all cell lines, likely due to hemodilution no evidence of acute blood loss H/H has remained stable # hypertension lisinopril initially held for LIZ renal function improved, will resume lisinpril # hypothyroidism continue levothyroxine # prediabetes last hemoglobin A1c 5.8 at [facility] 11/22 outpatient follow-up DVT prophylaxis-Lovenox renally adjusted Full code Patient requires ongoing inpatient stay for infectious colitis resulting in acute kidney injury requiring IV fluid resuscitation, IV antibiotics, and close monitoring of renal function electrolyte levels. Quality Stroke Does the patient have a stroke diagnosis?: No VTE Prior VTE?: No VTE Risk Level:: Medical - moderate - high VTE Device Contraindication: Treatment Not Indicated VTE Drug Contraindication: N/A - Med Ordered
[2023-05-29 15:17] VITALS: BP 197/82; PULSE 64; RESP 18; TEMP 36.8; O2SAT 96
--- NOTE | 2023-05-29 15:46 | PC.NURSE ---
informed Md of pt's bp
[2023-05-29] MEDS: Lactated Ringers 1,000 ML 100 ML IVCONT (15:48)
[2023-05-29 15:54] VITALS: BP 178/68
[2023-05-29 19:18] VITALS: BP 148/74; PULSE 66; RESP 16; TEMP 36.3; O2SAT 95
[2023-05-29] MEDS: Gabapentin 100 MG CAPSULE PO (20:35)
[2023-05-29] MEDS: 0.9 % Sodium Chloride Flush 3 ML SYRINGE IVFLUSH (20:41)
[2023-05-29] MEDS: cefTRIAXone sodium 1 GM in 0.9 % Sodium Chloride 50 ML IV (21:53)
[2023-05-29] MEDS: Enoxaparin Sodium 30 MG/0.3 ML SYRINGE SUBCUT (21:59)
[2023-05-30 03:02] VITALS: BP 140/64; PULSE 78; RESP 16; TEMP 36.4; O2SAT 93
[2023-05-30] MEDS: Levothyroxine Sodium 150 MCG TABLET PO (05:47)
[2023-05-30] MEDS: metroNIDAZOLE/NS 500 MG/100 ML PIGGYBACK 100 MG IV (05:48)
[2023-05-30 07:48] VITALS: BP 162/76; PULSE 58; RESP 16; TEMP 36.9; O2SAT 93
[2023-05-30] MEDS: 0.9 % Sodium Chloride Flush 3 ML SYRINGE IVFLUSH (08:32)
[2023-05-30] MEDS: Cyanocobalamin (Vitamin B-12) 1,000 MCG TABLET 1000 MCG PO (08:32)
[2023-05-30] MEDS: Multivitamin TABLET 1 TAB PO (08:33)
[2023-05-30] MEDS: Cholecalciferol (Vitamin D3) 25 MCG TABLET PO (08:33)
[2023-05-30] MEDS: Ascorbic Acid 500 MG TABLET PO (08:33)
[2023-05-30] MEDS: lisinopriL 20 MG TABLET PO (08:33)
[2023-05-30] MEDS: Vitamin E (Dl,Tocopheryl Acet) 180 MG (400 UNIT) CAPSULE PO (08:33)
--- NOTE | 2023-05-30 14:06 | MHC.CM.PN ---
PT TO DC HOME TODAY WITH NO SERVICES VIA PRIVATE TRANSPORT
--- NOTE | 2023-05-30 14:06 | PM.DS ---
DS: Providers Provider Date of Service: 05/30/23 Date of admission: 05/27/23 21:27 Primary care physician: Rodolfo Lawson MD DS: Diagnosis Discharge Diagnosis (1) Colitis: Status: Acute DS: Summary Hospital Course Hospital Course: History and physical as per admitting provider. 77-year-old female with history of hypertension, hypothyroidism, prediabetes, history of colostomy with reversal presented to the ED earlier today for evaluation of copious diarrhea ongoing for 1 day. She states she had some fecal urgency but no diarrhea on Thursday and then yesterday afternoon has been experiencing multiple episodes of watery diarrhea every hour. There is associated diffuse abdominal pain, lightheadedness. She is also felt nauseated and vomited x1 today. She has been trying to drink liquids and following a brat diet but really has not much of an appetite. Denies any fevers, chills, melena, hematochezia, urinary symptoms, shortness of breath, chest pain. She denies any recent travel or antibiotic use. She denies eating any bad foods recently and no no one at home has similar symptoms. On arrival, vital signs normal. She has a leukocytosis of 17.9. Creatinine 2.10 (baseline around 1.1 from [facility] 03/30/2023), BUN 34. Electrolyte levels levels normal except for CO2 20. Glucose 151. Lactic acid 1.9. Hepatic function largely within normal limits. GI panel and C diff PCR pending. Negative for COVID-19, flu, influenza. CXR shows mild atelectasis versus scarring of the right middle lobe lungs otherwise clear. CT abdomen/pelvis shows annular sutures along the sigmoid colon likely from ileocolic anastomosis as well as distended entire sigmoid colon some of distal small bowel loops are fluid-filled likely related to patient's history of diarrhea or inflammatory process. Anal narrowing is not excluded. In the ED, has received 2 L IV NS, 10 mg dicyclomine, IV Flagyl, IV morphine, and p.o. vanco. 77-year-old woman treated for LIZ, acute diarrhea with acute colitis. CT abdomen showed diffuse sigmoid colon distention and distal small bowel loops that were fluid-filled. C diff and GI panel negative. She was treated with IV Flagyl and ceftriaxone. She tolerated liquid diet and was advanced to regular. LIZ was secondary to hypovolemia from GI losses and resolved with IV fluids. Diarrhea significantly lessened and patient was able to tolerate solid food. She will be discharged home with her spouse. Normocytic anemia. No evidence of acute blood loss. H&H remained stable Hypertension lisinopril initially held due to LIZ but resumed as renal function improved. Hypothyroidism. Continue levothyroxine Pre diabetes. A1c 5.8. Not on any medications Time Attestation Discharge Coordination Time (in mins): 35 Quality: Safe Use of Opioids Does Pt have an Active Cancer Diagnosis on the Problem List?: No Quality: Stroke Does the patient have a stroke diagnosis?: No Physical Exam Vital Signs: Vital Signs: Last Vital Signs Temp 98.5 F 05/30/23 07:48 Pulse 58 05/30/23 07:48 Resp 16 05/30/23 07:48 BP 162/76 H 05/30/23 07:48 Pulse Ox 93 05/30/23 07:48 O2 Del Method Room Air 05/30/23 07:48 BMI result Body Mass Index 25.0 Appearing in no acute distress head is normocephalic atraumatic eyes pupils are PERRLA sclera is anicteric mouth throat mucous membranes are intact and moist neck is supple no lymphadenopathy, no JVD noted lung sounds are clear to auscultation heart regular rate rhythm, clear S1, S2 positive bowel sounds, abdomen is soft, nontender neuro patient is alert x3, no focal deficits Discharge Plan Discharge Anticipated Discharge Date/Time: 05/30/23 13:49 Patient Disposition: Home, Self-Care Discharge Diagnosis: Colitis Diarrhea LIZ Referrals: Rodolfo Lawson MD [Primary Care Provider] - 1 Week Discharge Medications: New cefuroxime axetil 500 mg tablet 500 mg PO BID Qty: 6 0RF Continued multivitamin Tablet 1 tab PO DAILY cyanocobalamin (vitamin B-12) 1,000 mcg Tablet 1,000 mcg PO DAILY ascorbic acid (vitamin C) 500 mg Tablet 500 mg PO DAILY vitamin E 268 mg (400 unit) Capsule 268 mg PO DAILY cholecalciferol (vitamin D3) 25 mcg (1,000 unit) Tablet 25 mcg PO DAILY omega 3-[id number]-[id number]-fish oil [Fish Oil] 1,000 mg (120 mg-180 mg) Capsule 1 cap PO DAILY loperamide 2 mg capsule 4 mg PO Q6H levothyroxine 150 mcg tablet 150 mcg PO DAILY lisinopril 20 mg tablet 20 mg PO DAILY ibuprofen 800 mg tablet 800 mg PO TID PRN (Reason: Pain) Discharge Orders: Discharge Order (Routine); Ordered 05/30/23 Ordered By: Gaby Lincoln Diet: Advance to usual diet Activity on Discharge: As tolerated Stand Alone Forms: Patient Portal Discharge page Care Plan Goals: Stick to a bland diet for a couple of days Drink plenty of fluids Health Concerns: Colitis Diarrhea LIZ Plan of Treatment: Complete antibiotic course Take all medications as prescribed Follow-up with primary care provider as needed Assessment: See discharge summary Discharge Date/Time: 05/30/23 14:30
== END 2023-05-30 14:30 | disposition home or self-care (01) | DRG 392 ==
LOC: HO.ED 20:00 → HO.EDOVER 22:02 → HO.S3 05-28 07:35
PROVIDERS: Physician Assistant Medical; Admitting Provider Physician Assistant; Emergency Provider Student in an Organized Health Care Education/Training Program; PCP Internal Medicine; Visit Provider Nurse Practitioner Acute Care
DX: A09 Infectious gastroenteritis and colitis, unspecified (principal); N17.9 Acute kidney failure, unspecified; I10 Essential (primary) hypertension; E86.0 Dehydration; D64.9 Anemia, unspecified; E86.1 Hypovolemia; E03.9 Hypothyroidism, unspecified; R73.03 Prediabetes; Z98.0 Intestinal bypass and anastomosis status; Z20.822 Contact with and (suspected) exposure to COVID-19; Z79.890 Hormone replacement therapy; Z79.899 Other long term (current) drug therapy
CPT/HCPCS: 0241U; 36415; 71045; 74176; 80048; 80053; 83605; 83735; 85025; 85027; 87493; 87507; 93005; 99285; J0696; J1650; J1836; J2270; J2405; J7120

== ENCOUNTER → 2023-05-27 17:30 | Outpatient (BNV) | payer MEDICARE, SELFPAY | PROVIDERS: Emergency Provider Student in an Organized Health Care Education/Training Program; PCP Internal Medicine; Visit Provider Physician Assistant | DX: K52.9 Noninfective gastroenteritis and colitis, unspecified (principal) | CPT/HCPCS: 99223; 99232; 99239 ==

== ENCOUNTER → 2023-05-27 17:39 | Outpatient (BNV) | payer MEDICARE, SELFPAY | PROVIDERS: Admitting Provider Physician Assistant; Emergency Provider Student in an Organized Health Care Education/Training Program; PCP Internal Medicine; Visit Provider Internal Medicine Cardiovascular Disease | DX: R94.31 Abnormal electrocardiogram [ECG] [EKG] (principal) | CPT/HCPCS: 93010 ==